=== PATIENT | male | born 1950 | race Caucasian/White ===

== ENCOUNTER 2021-04-10 13:00 | Emergency (ER) | payer MEDICARE, SELFPAY ==
--- NOTE | 2021-04-10 13:16 | XR_ITS ---
WS: [id number] Portable AP upright chest, 04/10/2021 Clinical Data: chest pain Comparison: None. Findings: No nodules, masses or effusions are seen. The heart is normal. The pulmonary vascularity is not increased. No pneumonia or pneumothorax is seen. The aortic arch and descending aorta show minim al tortuosity. XR/XR chest 1V portable [id number] Impression: Atherosclerosis.
--- NOTE | 2021-04-10 13:16 | ECG_ITS ---
[facility] Test Date: 2021-04-10 Pat Name: Jesse Gustafson Department: Room: Gender: Male Design Eng: : 1950 Requested By: Karrie Cramer Order Number: [id number] Reading MD: LIBRADO SHARMA Measurements Intervals [place] Rate: 102 P: 56 CO: 142 QRS: -15 QRSD: 86 T: 29 QT: 345 QTc: 450 Interpretive Statements SINUS TACHYCARDIA POSSIBLE LEFT ATRIAL ENLARGEMENT [-0.1mV P WAVE IN V1/V2] NONSPECIFIC ST & T-WAVE ABNORMALITY ABNORMAL RHYTHM ECG No previous ECG available for comparison Electronically Signed On 04-10-2021 14:26:49 CDT by LIBRADO SHARMA [id number]
[2021-04-10 13:22] VITALS: BP 124/85; PULSE 99; RESP 15; TEMP 36.8; O2SAT 95; BMI 30.1
[2021-04-10 14:30] LABS: Basophils # 0.1 10^3/uL (0.0-0.1); Basophils % 0.9 %; Eosinophils # 0.2 10^3/uL (0.0-0.8); Eosinophils % 2.9 %; Hematocrit 46.8 % (42.0-52.0); Lymphocytes # 1.1 10^3/uL (0.8-4.8); Lymphocytes % 19.2 %; Mean Corpuscular HGB Conc 34.2 g/dL (30.0-36.0); Mean Corpuscular Hemoglobin 30.9 pg (28.0-34.0); Mean Corpuscular Volume 90.5 fL (80-94); Mean Platelet Volume 9.7 fL (7.4-10.4); Monocytes # 0.6 10^3/uL (0.2-0.9); Monocytes % 9.4 %; Neutrophils # 3.97 10^3/uL (1.8-7.7); Neutrophils % 67.4 %; Nucleated Red Blood Cells % 0 %; Platelet Count 250 10^3/cmm (130-400); Red Blood Count 5.17 10^6/uL (4.1-5.3); Red Cell Distribution Width 11.8 % (12.1-15.1); White Blood Count 5.9 10^3/uL (4.0-10.0)
[2021-04-10 15:06] LABS: Troponin(5th) Baseline 20 ng/L (0-15)
[2021-04-10 15:15] LABS: Alanine Aminotransferase 28 U/L (0-41); Albumin Level 4.3 g/dL (3.5-5.2); Alkaline Phosphatase 105 IU/L (40-130); Anion Gap 13.3 (5-19); Aspartate Amino Transferase 21 U/L (0-40); Blood Urea Nitrogen 13 mg/dL (8-23); Calcium 9.2 mg/dL (8.5-10.5); Carbon Dioxide 24 mmol/L (22-29); Chloride 108 mmol/L (98-107); Globulin 2.5 g/dL (1.3-4.6); Glomerular Filtration Rate 133.6 mL/min (90-130); Glucose 127 mg/dL (65-115); Osmolality Calculated 296 mOsm/kg (285-295); Potassium 3.3 mmol/L (3.5-5.1); Sodium 142 mmol/L (136-145); Thyroid Stimulating Hormone 0.75 uIU/mL (0.27-4.20); Total Bilirubin 0.4 mg/dL (0.15-1.2); Total Protein 6.8 g/dL (6.6-8.7)
[2021-04-10 15:22] LABS: Creatinine Clr Calc Pharmacy 100.9551
[2021-04-10 17:26] LABS: Troponin 5 2HR 18.01 ng/L (0-15)
[2021-04-10 17:28] LABS: Troponin 5 2HR Delta -1.99 ABS# (0-10)
[2021-04-10 20:25] LABS: Troponin 5 6HR 13.78 ng/L (0-15)
[2021-04-10 20:27] LABS: Troponin 5 6HR Delta -6.22 ng/L (0-12)
--- NOTE | 2021-04-10 21:34 | ED_ITS ---
HPI - Arrhythmia/Palpitations General: Chief Complaint: Arrhythmia/Palpitations Stated Complaint: SENT BY PCP/AFIB Time Seen by Provider: 04/10/21 21:26 Source: patient Mode of arrival: ambulatory Limitations: no limitations History of Present Illness: HPI narrative: Patient is a 70-year-old male with a history of hypertension who presents to the emergency department from his [facility] provider's office with concerns for new onset atrial fibrillation. The patient takes metoprolol and his medications in [place]. He has been off the metoprolol for about 5 days. He went to his primary care provider today for refill of the medication and they thought he was in atrial fibrillation. He was therefore sent here to be evaluated. Patient admits to some dizziness but otherwise no other symptoms. MD complaint: rapid heart beat Onset (ago): hour(s) Duration: constant Severity: moderate Context: occurred during rest Associated symptoms: Reports diaphoresis; Deny anxiety, cough, muscle cramps, nausea, paresthesias, pre-syncope, sense of impending doom, short of breath, syncope or vomiting Review of Systems General: Reports: 10 or more systems reviewed and unremarkable except in HPI and below Const: Reports: diaphoresis Card: Denies: syncope or pre-syncope GI: Denies: nausea or vomiting Musc: Denies: muscle cramps Psych: Denies: anxiety Physical Exam Const: COMMON NORMALS: no acute distress, average body habitus, patient oriented x3, no limitations, healthy appearing, alert and well nourished HENMT: COMMON NORMALS: normocephalic, atraumatic and moist oral mucous membranes HEAD & SCALP: normocephalic and atraumatic Neck/C-Spine: COMMON NORMALS: no meningeal signs and no JVD Chest: COMMONS NORMALS: normal inspection of the chest and normal palpation of entire chest wall Resp: COMMON NORMALS: normal respiratory effort, No retractions, No use of accessory muscles, clear to auscultation bilaterally and percussion normal AUSCULTATION: clear to auscultation bilaterally PERCUSSION: percussion normal Cardio: COMMON NORMALS: no JVD, regular rate, regular rhythm, S1 normal heart sound present, S2 normal heart sound present, No gallops present (Cardio), No clicks present (Cardio), No murmurs present (Cardio), No rub (Cardio) and Peripheral pulses 2+ throughout RATE: regular rate RHYTHM: regular rhythm HEART SOUNDS: S1 normal heart sound present and S2 normal heart sound present PERIPHERAL PULSES: Peripheral pulses 2+ throughout GI: COMMON NORMALS: Normal to inspection, nondistended, normoactive bowel sounds present, Soft to palpation, non-tender, No hepatosplenomegaly present, no masses and no bruits PALPATION: Yes Soft to palpation and Yes No hepatosplenomegaly present Extremity: COMMON NORMALS: normal to inspection, full ROM, capillary refill normal, no calf tenderness and no pedal edema Neuro: COMMON NORMALS: patient oriented x3 SENSORIUM/ORIENTATION: Yes alert MENINGEAL SIGNS: Yes no meningeal signs Course Reevaluation(s): Reevaluation #1: Discussed his lab and imaging findings with him. Essentially unremarkable. Baseline troponin mildly elevated but he has a flat delta. Explained to him that his EKG findings in the emergency department does not show atrial fibrillation, it only shows sinus tachycardia. We will discharge him home, he asked for a refill of his metoprolol. We will discharge him home with a prescription for metoprolol. He voiced understanding and is in agreement with the plan. Time: 21:34 Vital Signs: Vital signs: Vital Signs Temperature 98.2 F 04/10/21 13:22 Pulse Rate 99 04/10/21 13:22 Respiratory Rate 15 04/10/21 13:22 Blood Pressure 124/85 04/10/21 13:22 Pulse Oximetry 95 04/10/21 13:22 MDM - Arrhythmia/Palpitations MDM Narrative: Medical decision making narrative: 70-year-old male who presents to the emergency department with from his primary care provider's office where they thought he had new onset atrial fibrillation. He has been off his beta-blockers for about 5 days. EKG in the emergency department showed sinus tachycardia. No atrial fibrillation was noted. Work-up was essentially unremarkable and he is discharged home to continue his home medications. He was given a prescription for metoprolol. Lab Data: Labs: Lab Results 04/10/21 04/10/21 04/10/21 Range/Units 14:08 14:08 14:08 WBC 5.9 (4.0-10.0) 10^3/ uL RBC 5.17 (4.1-5.3) 10^6/u L Hgb 16.0 (11.7-16.6) g/dL Hct 46.8 (42.0-52.0) % MCV 90.5 (80-94) fL MCH 30.9 (28.0-34.0) pg MCHC 34.2 (30.0-36.0) g/dL RDW 11.8 L (12.1-15.1) % Plt Count 250 (130-400) 10^3/c mm MPV 9.7 (7.4-10.4) fL Neut % (Auto) 67.4 % Lymph % (Auto) 19.2 % Bledsoe % (Auto) 9.4 % Eos % (Auto) 2.9 % Baso % (Auto) 0.9 % Neut # (Auto) 3.97 (1.8-7.7) 10^3/u L Lymph # (Auto) 1.1 (0.8-4.8) 10^3/u L Bledsoe # (Auto) 0.6 (0.2-0.9) 10^3/u L Eos # (Auto) 0.2 (0.0-0.8) 10^3/u L Baso # (Auto) 0.1 (0.0-0.1) 10^3/u L Nucleated RBC % (a uto) 0 % Nucleated RBCs # 0.0 /100WBC Sodium 142 (136-145) mmol/L Potassium 3.3 L (3.5-5.1) mmol/L Chloride 108 H (98-107) mmol/L Carbon Dioxide 24 (22-29) mmol/L Anion Gap 13.3 (5-19) BUN 13 (8-23) mg/dL Creatinine 0.6 L (0.7-1.2) mg/dL GFR Calculation 133.6 H (90-130) mL/min Glucose 127 H (65-115) mg/dL Calculated Osmolal ity 296 H (285-295) mOsm/k g Calcium 9.2 (8.5-10.5) mg/dL Total Bilirubin 0.4 (0.15-1.2) mg/dL AST 21 (0-40) U/L ALT 28 (0-41) U/L Alkaline Phosphata se 105 (40-130) IU/L Troponin T Baselin e 20 H (0-15) ng/L Troponin T 120 Min [place] Delta Troponin T Troponin T Hi Sens 6Hr (0-15) ng/L Troponin T Hi Sens 6Hr Delta (0-12) ng/L Total Protein 6.8 (6.6-8.7) g/dL Albumin 4.3 (3.5-5.2) g/dL Globulin 2.5 (1.3-4.6) g/dL TSH 0.75 (0.27-4.20) uIU/ mL 04/10/21 04/10/21 04/10/21 Range/Units 16:19 16:51 20:02 WBC (4.0-10.0) 10^3/ uL RBC (4.1-5.3) 10^6/u L Hgb (11.7-16.6) g/dL Hct (42.0-52.0) % MCV (80-94) fL MCH (28.0-34.0) pg MCHC (30.0-36.0) g/dL RDW (12.1-15.1) % Plt Count (130-400) 10^3/c mm MPV (7.4-10.4) fL Neut % (Auto) % Lymph % (Auto) % Bledsoe % (Auto) % Eos % (Auto) % Baso % (Auto) % Neut # (Auto) (1.8-7.7) 10^3/u L Lymph # (Auto) (0.8-4.8) 10^3/u L Bledsoe # (Auto) (0.2-0.9) 10^3/u L Eos # (Auto) (0.0-0.8) 10^3/u L Baso # (Auto) (0.0-0.1) 10^3/u L Nucleated RBC % (a uto) % Nucleated RBCs # /100WBC Sodium (136-145) mmol/L Potassium (3.5-5.1) mmol/L Chloride (98-107) mmol/L Carbon Dioxide (22-29) mmol/L Anion Gap (5-19) BUN (8-23) mg/dL Creatinine (0.7-1.2) mg/dL GFR Calculation (90-130) mL/min Glucose (65-115) mg/dL Calculated Osmolal ity (285-295) mOsm/k g Calcium (8.5-10.5) mg/dL Total Bilirubin (0.15-1.2) mg/dL AST (0-40) U/L ALT (0-41) U/L Alkaline Phosphata se (40-130) IU/L Troponin T Baselin e (0-15) ng/L Troponin T 120 Min [place] Cancelled 18.01 H Delta Troponin T Cancelled -1.99 L Troponin T Hi Sens 6Hr 13.78 (0-15) ng/L Troponin T Hi Sens 6Hr Delta -6.22 L (0-12) ng/L Total Protein (6.6-8.7) g/dL Albumin (3.5-5.2) g/dL Globulin (1.3-4.6) g/dL TSH (0.27-4.20) uIU/ mL Imaging Data^: CXR: Attestation: I personally reviewed and interpreted this imaging study as follows: Radiologist's impression: [address] [id number] ReportSigned Patient: Jesse Gustafson #: [id number]: 1950cct#:[id number]/Sex: 70 / MADM Date: 04/10/21Loc: [facility]/Bed:Attending Dr: Ordering Provider/Ordering MD: Karrie Cramer Date of Service: 04/10/21 Procedure(s): XR chest 1V portable [id number] Accession Number(s): [id number] Report Number: [id number] WS: [id number] Portable AP upright chest, 04/10/2021 Clinical Data: chest pain Comparison: None. Findings: No nodules, masses or effusions are seen. The heart is normal. The pulmonary vascularity is not increased. No pneumonia or pneumothorax is seen. The aortic arch and descending aorta show minimal tortuosity. XR/XR chest 1V portable [id number] Impression: Atherosclerosis. Dictated By:Elizabeth Dobbs MDSigned By:Elizabeth Dobbs MDSigned Date/Time:04/10/21 1434DD/ 1434 EKG Data^: EKG 1: Attestation: I personally reviewed and interpreted this EKG as follows: EKG interpretation date: 04/10/21 EKG interpretation time: 13:35 Prior EKG tracings: not available for review Interpretation: Sinus tachycardia. Heart rate [address] changes. Other EKG comments: Chest X-Ray 04/10/21 13:16 Impression: Atherosclerosis. Discharge Plan Discharge Patient Disposition: Home Clinical Impression: Sinus tachycardia Condition: Stable Prescriptions: New metoprolol tartrate 50 mg tablet 25 mg PO BID Qty: 60 RF: 0 Discharge Orders: Discharge ED (Routine); Ordered 04/10/21 Ordered By: Telly Dias Referrals: Bette Maya SENIOR FORMULATION SCIENTIST [Primary Care Provider] - 1-3 days Discharge Diet: Usual diet Discharge Activity: Increase activity as tolerated Activity Restrictions/Additional Instructions: Return for any new or worsening symptoms. Follow-up with your primary care provider within 3 days. Take the medications as prescribed. Coding Level of Care Code ED Sales Representative [employer]
[2021-04-10 22:48] VITALS: BP 173/91; PULSE 70; RESP 20; O2SAT 97
== END 2021-04-10 22:53 | disposition home or self-care (01) ==
PROVIDERS: Physician Assistant; Emergency Provider Family Medicine; PCP Nurse Practitioner
DX: R00.0 Tachycardia, unspecified (principal)
CPT/HCPCS: 36415; 71045; 80053; 84443; 84484; 85025; 93005; 99283

== ENCOUNTER 2021-09-16 13:25 | Outpatient (CLI) | payer MEDICARE, SELFPAY ==
--- NOTE | 2021-09-16 13:32 | CT_ITS ---
WS: [id number] CT ABDOMEN PELVIS TECHNIQUE: Noncontrast CT of the abdomen and pelvis with coronal and sagittal reformatted images. CLINICAL INFORMATION: LEFT FLANK PAIN COMPARISON: None. DLP: 1692.[address] scans at [facility] use at least one of these dose optimization techniques: automated e xposure control; mA and/or kV adjustment per patient size (includes targeted exams where dose is matc hed to clinical indication); or iterative reconstruction. FINDINGS:Tiny calculi at the left UVJ and internal bladder orifice both measuring approximately 3 mm. No hydronephrosis in the left kidney. No significant ureterectasis. No hydronephrosis in either kidn ey. Small right renal cysts two largest measuring 2.5 cm. Normal noncontrast liver. Dense cholelithiasis. No gallbladder wall thickening or pericholecystic flu id. Normal spleen. Normal GE junction. Mild sigmoid colon constipation. A few diverticula. Heterogeneous enlarged prostate with indentation on the bladder. 5.1 x 5.7 CM. Recommend correlation PSA. Mild thickening of the seminal vesicles bila terally. Pelvic phleboliths. Adrenal glands are normal. Fatty atrophy of the pancreas. Lung bases are well aerated. CT/CT kidney stone [id number] IMPRESSION: 1. 2 tiny 3 mm calculi at the left UVJ and internal bladder orifice which has passed or nearly passed. 2. No significant hydronephrosis in the left kidney. No significant ureterecta sis. 3. No obstructing right renal or ureteral calculi. 4. Dense cholelithiasis. C follow up with ultrasound. 5. Right renal cysts in the mid aspect and right lower pole both measuring jody roximately 2.5 cm. 6. Markedly enlarged heterogeneous prostate measuring 5.1 x 5.7 cm with thicke jose of the seminal vesicles. Findings suspicious for neoplasia/hyperplasia. Re commend correlation with PSA.
== END 2021-09-16 13:26 | disposition home or self-care (01) ==
LOC: RAD 13:27
PROVIDERS: PCP Nurse Practitioner Family; Visit Provider Nurse Practitioner Family
DX: R10.9 Unspecified abdominal pain (principal); R31.9 Hematuria, unspecified; K80.20 Calculus of gallbladder without cholecystitis without obstruction; Q61.02 Congenital multiple renal cysts
CPT/HCPCS: 74176

== ENCOUNTER 2025-07-25 15:22 | Outpatient (CLI) | payer MEDICARE, SELFPAY ==
--- NOTE | 2025-07-25 15:26 | CTR_ITS ---
PROCEDURE INFORMATION: Exam: CT Abdomen And Pelvis Without Contrast Exam date and time: 07/25/2025 3:59 PM Age: 75 years old Clinical indication: Hematuria x 3 days, HX of kidney stones TECHNIQUE: Imaging protocol: Computed tomography of the abdomen and pelvis without contrast. Radiation optimization: All CT scans at this facility use at least one of these dose optimization techniques: automated exposure control; mA and/or kV adjustment per patient size (includes targeted exams where dose is matched to clinical indication); or iterative reconstruction. COMPARISON: CT kidney stone [id number] 09/16/2021 1:53 PM RADIATION DOSE METRICS: Total DLP (mGy-cm): 433.63 FINDINGS: Lungs: Minimal basilar atelectasis on the lung windows within the visualized lung bases. Liver: Liver appears unremarkable for unenhanced exam. Gallbladder and biliary ducts: Gallstones or cholelithiasis within the inferior or dependent gallbladder noted with prior exam. No significant biliary ductal dilatation. Pancreas: Normal. No ductal dilation. Spleen: Normal. No splenomegaly. Adrenal glands: Normal. No mass. Kidneys and ureters: Hypodense right renal cysts, as noted with prior exam. 3 mm stone mid to lower pole collecting structures of the right kidney and subtle punctate renal calculus lower pole right kidney as well. No left renal calculi are seen. No definite ureteral calculus or obstructive uropathy. No abnormal perinephric stranding. Stomach and bowel: No bowel obstruction. Moderate stool volume throughout the colon. A few colonic diverticula are seen. Bowel is otherwise unremarkable for noncontrast exam. Appendix: The appendix is visualized. No evidence of appendicitis. Intraperitoneal space: No free fluid or ascites. No free air. Vasculature: Mild atherosclerotic calcification with unremarkable caliber of the abdominal aorta. Pelvic phleboliths noted. Lymph nodes: Unremarkable. No enlarged lymph nodes. Urinary bladder: Unremarkable as visualized. Reproductive: Markedly enlarged prostate gland indenting the adjacent urinary bladder. Chronic appearing calcifications within the inferior aspect of the prostate gland. Findings are similar to previous exam. Prominent seminal vesicles again noted. Urinary bladder is unremarkable other than prominent indentation and effacement from adjacent enlarged prostate gland. Bones/joints: Bone windows show no acute osseous abnormality. Mild spondylotic change within the spine. Soft tissues: Unremarkable. CT/CT kidney stone [id number] IMPRESSION: 1. Cholelithiasis. 2. Right renal cysts. 3. Nonobstructing 3 mm calculus mid to lower pole collecting structures right kidney and subtle punctate renal calculus lower pole right kidney. No findings of ureteral calculus or obstructive uropathy. 3. Markedly enlarged prostate gland with indentation and effacement on the adjacent urinary bladder. This appears chronic with prior exam. Correlate with PSA. 4. Moderate stool volume throughout the colon. A few noninflamed colonic diverticula.
== END 2025-07-25 15:23 | disposition home or self-care (01) ==
LOC: RAD 15:23
PROVIDERS: PCP Nurse Practitioner Family; Visit Provider Nurse Practitioner Family
DX: R31.9 Hematuria, unspecified (principal); K80.20 Calculus of gallbladder without cholecystitis without obstruction; N28.1 Cyst of kidney, acquired; N20.0 Calculus of kidney; N40.0 Benign prostatic hyperplasia without lower urinary tract symptoms; R93.89 Abnormal findings on diagnostic imaging of other specified body structures; K57.30 Diverticulosis of large intestine without perforation or abscess without bleeding; I70.0 Atherosclerosis of aorta; I87.8 Other specified disorders of veins; N42.89 Other specified disorders of prostate; N32.89 Other specified disorders of bladder; M47.9 Spondylosis, unspecified
CPT/HCPCS: 74176